=== PATIENT | male | born 2000 | race African-American/Black ===

== ENCOUNTER 2020-08-28 21:50 | Emergency (ER) | payer OTHER ==
[~2020-08-28] VITALS: Ht 182.9 cm; Wt 89.8 kg
[2020-08-28 21:50] VITALS: BP 127/70
--- NOTE | 2020-08-28 23:15 | NUR ---
Patient discharged to home in stable condition. Written and verbal after care instructions given. Patient /Family verbalizes understanding of instruction.
== END 2020-08-28 23:16 | disposition home or self-care (01) ==
LOC: ER 21:50
DX: K08.89 Other specified disorders of teeth and supporting structures (principal); I10 Essential (primary) hypertension; E03.9 Hypothyroidism, unspecified; G47.00 Insomnia, unspecified; F84.0 Autistic disorder